=== PATIENT | female | born 1990 | race Hispanic/Latino ===

== ENCOUNTER 2018-02-12 20:59 | Inpatient (IN) | payer OTHER ==
[2018-02-12] MEDS ORDERED: Sodium Chloride 0.9% 1,000 ML IV STA (22:19)
[2018-02-12 22:57] LABS: BASO # 0.1 K/uL (0.0-0.2); BASO % 0.6 % (0.0-2.0); EOS # 0.1 K/uL (0.0-0.7); EOS % 0.6 % (0.0-4.0); HEMOGLOBIN 13.4 g/dL (12.0-16.0); LYMPH # 1.9 K/uL (1.0-4.3); LYMPH % 13.4 % (20.0-40.0); MEAN CELL VOLUME 92.2 fl (81.0-99.0); MEAN CORPUSCULAR HEMOGLOBIN 31.6 pg (27.0-31.0); MEAN CORPUSCULAR HGB CONC 34.2 g/dL (33.0-37.0); MEAN PLATELET VOLUME 10.3 fl (7.2-11.7); MONO # 0.8 K/uL (0.0-0.8); NEUT # 11.2 K/uL (1.8-7.0); NEUT % 79.4 % (50.0-75.0); RBC 4.25 Mil/uL (3.80-5.20); RED CELL DISTRIBUTION WIDTH 12.5 % (11.5-14.5); WHITE BLOOD COUNT 14.1 K/uL (4.8-10.8)
[2018-02-12 23:03] LABS: SQUAMOUS EPITHIAL 14 /hpf (0-5); URINE BACTERIA OCC (<OCC); URINE BILIRUBIN NEGATIVE (NEGATIVE); URINE BLOOD NEGATIVE (NEGATIVE); URINE CLARITY CLOUDY (Clear); URINE COLOR YELLOW (YELLOW); URINE GLUCOSE (UA) NEG (Normal); URINE LEUKOCYTE ESTERASE LARGE Leu/uL (Negative); URINE PROTEIN 30 mg/dL (NEGATIVE); URINE UROBILINOGEN 0.2-1.0 mg/dL (0.2-1.0)
[2018-02-12 23:19] LABS: ALB/GLOB RATIO 1.3 (1.0-2.1); ALT/SGPT 33 U/L (9-52); AST/SGOT 27 U/L (14-36); BLOOD UREA NITROGEN 12 mg/dl (7-17); CALCIUM 9.2 mg/dL (8.4-10.2); GFR AFRICAN-AMERICAN > 60; GFR NON-AFRICAN AMERICAN > 60
[2018-02-12 23:22] LABS: PARTIAL THROMBOPLASTIN TIME 30.7 Seconds (25.6-37.1); PROTHROMBIN TIME 10.8 Seconds (9.8-13.1)
--- NOTE | 2018-02-12 23:35 | ED PDOC ---
HPI: Abdomen Time Seen by Provider: 02/12/18 21:45 Chief Complaint (Nursing): Abdominal Pain History Per: Patient History/Exam Limitations: no limitations Onset/Duration Of Symptoms: Days Outside of [place] travel?: No Current Symptoms Are (Timing): Still Present Location Of Pain/Discomfort: RLQ Quality Of Discomfort: Unable To Describe Associated Symptoms: Nausea. denies: Fever, Chills, Vomiting, Diarrhea, Loss Of Appetite, Constipation, Urinary Symptoms Additional Complaint(s): No PMHX presenting with abdominal pain, RLQ, states it started yesterday. States she's had this pain for a month but it comes and goes. States she's been seen by both a surgeon and DIE CAST OPERATOR as an outpatient that believe her symptoms are either related to appendicitis or endometriosis. She states that the pain was severe, requiring her to come to the ER. Associated with nausea, no vomiting. No urinary symptoms, fevers, chills. Past Medical History Reviewed: Historical Data, Nursing Documentation, Vital Signs Vital Signs: Last Vital Signs Temp 98.6 F 02/12/18 21:41 Pulse 86 02/12/18 21:41 Resp 20 02/12/18 21:41 BP 135/94 H 02/12/18 21:41 Pulse Ox 98 02/12/18 23:37 - Family History Family History: States: Unknown Family Hx - Home Medications Home Medications: Ambulatory Orders Medication Instructions Recorded No Known Home Med 02/13/18 - Allergies Allergies/Adverse Reactions: Allergies Allergy/AdvReac Type Severity Reaction Status Date / Time amoxicillin Allergy Mild hives Verified 02/12/18 21:44 Review of Systems ROS Statement: Except As Marked, All Systems Reviewed And Found Negative Gastrointestinal: Positive for: Abdominal Pain Physical Exam - Reviewed Nursing Documentation Reviewed: Yes Vital Signs Reviewed: Yes - Physical Exam Appears: Positive for: Well, Non-toxic, No Acute Distress Head Exam: Positive for: ATRAUMATIC, NORMAL INSPECTION, NORMOCEPHALIC Skin: Positive for: Normal Color, Warm, DRY Eye Exam: Positive for: EOMI, Normal appearance, PERRL ENT: Positive for: Normal ENT Inspection Neck: Positive for: Normal, Painless ROM Cardiovascular/Chest: Positive for: Regular Rate, Rhythm Respiratory: Positive for: CNT, Normal Breath Sounds Gastrointestinal/Abdominal: Positive for: Normal Exam, Bowel Sounds, Soft, Tenderness (RLQ tenderness). Negative for: Organomegaly, Mass, Distended, Guarding Back: Positive for: Normal Inspection Extremity: Positive for: Normal ROM Neurologic/Psych: Positive for: Alert, Oriented - Laboratory Results Result Diagrams: 02/13/18 06:17 02/12/18 22:45 - ECG O2 Sat by Pulse Oximetry: 98 Pulse Ox Interpretation: Normal Medical Decision Making Medical Decision MakinPM A/P: Hx of abdominal pain x 1 month, now worsening -concerned for possible appendicitis v. mesenteric adenitis v. endometriosis v. colitis -will get labs, CT, give fluids, toradol -re-eval 5AM -CT shows no acute abnormality but patient in continued pain -Will admit to surgical service -Patient seen and examined by Dr. Cisneros Disposition - Clinical Impression Clinical Impression: Abdominal pain - Disposition Disposition Time: 05:00 Condition: FAIR
[2018-02-13] MEDS ORDERED: Iohexol 240 (50 ml) PO ONE (01:20)
[2018-02-13] MEDS ORDERED: Sodium Chloride 0.9% 50 ML IV ONE (02:53)
[2018-02-13] MEDS ORDERED: Iohexol 300 100 ML IJ ONE (02:53)
[2018-02-13] MEDS ORDERED: Lactated Ringer's 1,000 ML IV SCH (04:00)
--- NOTE | 2018-02-13 04:12 | CP.PCM.HP ---
History of Present Illness - History of Present Illness History of Present Illness: General surgery H & P for Dr. Guillermo Cisneros, PGY-2 Pt S & E at bedside at 0305 27F w/PMH sig for recurrent RLQ abdominal pain x 1 mo. Pt reports multiple hospital admissions with imaging performed for RLQ ab pain over last month. Pain is sharp, severe, intermittent episodes, radiates to low back. No alleviating or aggravating factors identified. Tried mini OCP without alleviation. This particular episode of RLQ ab pain started last night. No inciting, alleviating factors identified. Aggravated by movement. Admits to associated headache, abdominal bloating, nausea, discomfort with urination. Denies edward dysuria, hematuria, urinary frequency, onset with relation to specific time during menstrual period, fevers, chills, chest pain, SOB, emesis, constipation, diarrhea, or other complaints. In ED - Afebrile, leukocytosis of 14.1. CT abdomen with no evidence of an acute intra-abdominal or pelvic abnormality. No evidence of acute appendicitis. PMH: Recurrent RLQ abdominal pain, PCOS, bicuspid aortic valve PSH: denies All: Amoxicillin SH: Admits to occasional EOTH use - #2 drinks weekly, denies tobacco or illicit drug use PMD: Dr. Nataliya Beard Hand Glass Cutter: Dr. Garcia Present on Admission - Present on Admission Any Indicators Present on Admission: No History of DVT/PE: No History of Uncontrolled Diabetes: No Urinary Catheter: No Decubitus Ulcer Present: No Review of Systems - Review of Systems All systems: reviewed and no additional remarkable complaints except - Constitutional Constitutional: absent: Chills, Fever, Weakness - EENT Eyes: absent: Change in Vision Nose/Mouth/Throat: absent: Sore Throat - Cardiovascular Cardiovascular: absent: Chest Pain - Respiratory Respiratory: absent: Cough - Gastrointestinal Gastrointestinal: Abdominal Pain, Bloating, Nausea. absent: Constipation, Diarrhea, Hematemesis, Hematochezia, Vomiting - Genitourinary Genitourinary: absent: Change in Urinary Stream, Dysuria, Flank Pain, Hematuria - Reproductive: Female Reproductive:Female: absent: Amenorrhea - Musculoskeletal Musculoskeletal: Back Pain (radiates from front). absent: Numbness, Tingling - Integumentary Integumentary: absent: Rash - Neurological Neurological: absent: Dizziness - Psychiatric Psychiatric: Change in Appetite (decreased when in pain) Past Patient History - Past Social History Smoking Status: Never Smoked - PSYCHIATRIC Hx Substance Use: No - SURGICAL HISTORY Hx Surgeries: No Meds Allergies/Adverse Reactions: Allergies Allergy/AdvReac Type Severity Reaction Status Date / Time amoxicillin Allergy Mild hives Verified 02/12/18 21:44 Physical Exam - Constitutional Appears: Non-toxic, No Acute Distress - Head Exam Head Exam: ATRAUMATIC, NORMAL INSPECTION, NORMOCEPHALIC - Eye Exam Eye Exam: EOMI, Normal appearance - ENT Exam ENT Exam: Mucous Membranes Moist, Normal Exam - Neck Exam Neck exam: Positive for: Full Rom, Normal Inspection - Respiratory Exam Respiratory Exam: Clear to Auscultation Bilateral, NORMAL BREATHING PATTERN. absent: Rales, Rhonchi, Wheezes, Respiratory Distress - Cardiovascular Exam Cardiovascular Exam: REGULAR RHYTHM, +S1, +S2 - GI/Abdominal Exam GI & Abdominal Exam: Distended, Hyperactive Bowel Sounds, Soft, Tenderness (RLQ) . absent: Firm, Guarding, Rebound, Rigid - Rectal Exam Rectal Exam: Deferred - Extremities Exam Extremities exam: Positive for: normal inspection - Neurological Exam Neurological exam: Alert, CN II-XII Intact, Oriented x3 - Psychiatric Exam Psychiatric exam: Normal Affect, Normal Mood - Skin Skin Exam: Dry, Intact, Normal Color, Warm Results - Vital Signs Recent Vital Signs: Last Vital Signs Temp 98.6 F 02/12/18 21:41 Pulse 86 02/12/18 21:41 Resp 20 02/12/18 21:41 BP 135/94 H 02/12/18 21:41 Pulse Ox 98 02/12/18 23:37 - Labs Result Diagrams: 02/12/18 22:45 02/12/18 22:45 Labs: Laboratory Results - last 24 hr 02/12/18 02/12/18 02/12/18 22:45 22:45 22:45 WBC 14.1 H RBC 4.25 Hgb 13.4 Hct 39.2 MCV 92.2 MCH 31.6 H MCHC 34.2 RDW 12.5 Plt Count 251 MPV 10.3 Neut % (Auto) 79.4 H Lymph % (Auto) 13.4 L Tift % (Auto) 6.0 Eos % (Auto) 0.6 Baso % (Auto) 0.6 Neut # (Auto) 11.2 H Lymph # (Auto) 1.9 Tift # (Auto) 0.8 Eos # (Auto) 0.1 Baso # (Auto) 0.1 PT INR APTT Sodium 139 Potassium 4.1 Chloride 105 Carbon Dioxide 22 Anion Gap 16 BUN 12 Creatinine 0.6 L Est GFR ( Amer) > 60 Est GFR (Non-Af Amer) > 60 Random Glucose 87 Calcium 9.2 Total Bilirubin 0.4 AST 27 ALT 33 Alkaline Phosphatase 55 Total Protein 7.1 Albumin 4.0 Globulin 3.1 Albumin/Globulin Ratio 1.3 Urine Color Yellow Urine Clarity Cloudy Urine pH 5.0 Ur Specific [place] 1.029 Urine Protein 30 Urine Glucose (UA) Neg Urine Ketones Trace Urine Blood Negative Urine Nitrate Negative Urine Bilirubin Negative Urine Urobilinogen 0.2-1.0 Ur Leukocyte Esterase Large Urine RBC (Auto) 10 H Urine Microscopic WBC 18 H Ur Squamous Epith Cells 14 H Urine Bacteria Occ H Blood Type Antibody Screen BBK History Checked 02/12/18 02/12/18 22:55 22:55 WBC RBC Hgb Hct MCV MCH MCHC RDW Plt Count MPV Neut % (Auto) Lymph % (Auto) Tift % (Auto) Eos % (Auto) Baso % (Auto) Neut # (Auto) Lymph # (Auto) Tift # (Auto) Eos # (Auto) Baso # (Auto) PT 10.8 INR 1.0 APTT 30.7 Sodium Potassium Chloride Carbon Dioxide Anion Gap BUN Creatinine Est GFR ( Amer) Est GFR (Non-Af Amer) Random Glucose Calcium Total Bilirubin AST ALT Alkaline Phosphatase Total Protein Albumin Globulin Albumin/Globulin Ratio Urine Color Urine Clarity Urine pH Ur Specific [place] Urine Protein Urine Glucose (UA) Urine Ketones Urine Blood Urine Nitrate Urine Bilirubin Urine Urobilinogen Ur Leukocyte Esterase Urine RBC (Auto) Urine Microscopic WBC Ur Squamous Epith Cells Urine Bacteria Blood Type B POSITIVE Antibody Screen Negative BBK History Checked No verified bt Assessment & Plan - Assessment and Plan (Free Text) Assessment: 27F w/recurrent RLQ ab pain, chronic appendicitis vs. endometriosis Plan: Admit to med-surg VS Q8H NPO Pain medication Abx IVF Anti-emetic PRN Ambulates OOBTC Plan for OR later today Consent in chart FU EKG Will DW attending Amelia, PGY-2 - Date & Time Date: 02/13/18 Time: 04:11 Decision To Admit - Pt Status Changed To: Hospital Disposition Of: Observation - . Bed Request Type: Med/Surg Admitting Physician: Ricky Church
[2018-02-13 06:28] LABS: MEAN CELL VOLUME 92.7 fl (81.0-99.0); MEAN CORPUSCULAR HEMOGLOBIN 31.7 pg (27.0-31.0); MEAN CORPUSCULAR HGB CONC 34.2 g/dL (33.0-37.0); RBC 4.09 Mil/uL (3.80-5.20); RED CELL DISTRIBUTION WIDTH 12.6 % (11.5-14.5); WHITE BLOOD COUNT 11.6 K/uL (4.8-10.8)
[2018-02-13 06:54] LABS: BLOOD UREA NITROGEN 7 mg/dl (7-17); CALCIUM 8.6 mg/dL (8.4-10.2); GFR AFRICAN-AMERICAN > 60; GFR NON-AFRICAN AMERICAN > 60
[2018-02-13] MEDS ORDERED: Ciprofloxacin 400mg/200ml D5W 400 MG/200 ML BAG IVPB ONE (07:17)
--- NOTE | 2018-02-13 07:46 | CARD ---
APPROVED REPORT Date of service: 02/13/2018 <Conclusion> Normal sinus rhythm Septal infarct, age undetermined Abnormal ECG
[2018-02-13] MEDS: Ciprofloxacin 400mg/200ml D5W 400 MG/200 ML BAG IVPB SCH ×2 (07:51→22:00)
[2018-02-13] MEDS: metroNIDAZOLE 500mg/100ml NS 100 ML IVPB SCH ×2 (09:24→21:25)
--- NOTE | 2018-02-13 10:36 | CT ---
Date of service: 02/13/2018 PROCEDURE: CT Abdomen and Pelvis with contrast HISTORY: RLQ pain COMPARISON: None. TECHNIQUE: Contrast dose: 90 cc of Omnipaque 300 Radiation dose: Total exam DLP = 737 mGy-cm. This CT exam was performed using one or more of the following dose reduction techniques: Automated exposure control, adjustment of the mA and/or kV according to patient size, and/or use of iterative reconstruction technique. FINDINGS: LOWER THORAX: Unremarkable. LIVER: Unremarkable. No gross lesion or ductal dilatation. GALLBLADDER AND BILE DUCTS: Unremarkable. PANCREAS: Unremarkable. No gross lesion or ductal dilatation. SPLEEN: Unremarkable. ADRENALS: Unremarkable. No mass. KIDNEYS AND URETERS: Unremarkable. No hydronephrosis. No solid mass. VASCULATURE: Unremarkable. No aortic aneurysm. BOWEL: Unremarkable. No obstruction. No gross mural thickening. APPENDIX: Normal appendix. PERITONEUM: Unremarkable. No free fluid. No free air. LYMPH NODES: Unremarkable. No enlarged lymph nodes. BLADDER: Unremarkable. REPRODUCTIVE: There is a left ovarian cyst measuring 3.8 x 5.0 cm. BONES: No acute fracture. OTHER FINDINGS: The report concurs with the preliminary [facility] report IMPRESSION: Left ovarian cysts. No acute intra-abdominal findings
[2018-02-13] MEDS ORDERED: Propofol 10 mg/ml Inj (20 ML) ONE (13:29)
[2018-02-13] MEDS ORDERED: Succinylcholine 200 mg/10 ml Inj IV ONE (13:30)
[2018-02-13] MEDS ORDERED: ePHEDrine 50 mg/ml Inj ONE (13:30)
[2018-02-13] MEDS ORDERED: Rocuronium 10 mg/ml (5 ml) ONE (13:30)
[2018-02-13] MEDS ORDERED: Lidocaine 4% (Laryng-O-Jet) Kit MM ONE (13:30)
[2018-02-13] MEDS ORDERED: Midazolam 2 MG/2 ML VIAL ONE (13:30)
[2018-02-13] MEDS ORDERED: Lactated Ringer's 1,000 ML IV ONE ×5 (13:55→17:10)
[2018-02-13] MEDS ORDERED: Bupivacaine 0.5% 50 ML IJ ONE ×2 (14:33)
[2018-02-13] MEDS ORDERED: Neostigmine 1:1000 (1 mg/ml) Inj ONE (15:10)
[2018-02-13] MEDS ORDERED: Desflurane Inhalation Anesthetic Liq (240 ml) ONE (15:11)
--- NOTE | 2018-02-13 15:45 | PCM.SURG1 ---
Surgeon's Initial Post Op Note - Surgeon's Notes Surgeon: Dr. Church Paper Bag Machine Operator: Dr Estrada Ricketts PGY3 Type of Anesthesia: General Endo Pre-Operative Diagnosis: RLQ abd pain Operative Findings: see dictation Post-Operative Diagnosis: same Operation Performed: diagnostic laparoscopy, laparoscopic appendectomy Specimen/Specimens Removed: appendix Estimated Blood Loss: EBL {In ML}: 15 Blood Products Given: N/A Drains Used: No Drains Post-Op Condition: Good Date of Surgery/Procedure: 02/13/18 Time of Surgery/Procedure: 15:45
[2018-02-13] MEDS ORDERED: oxyCODONE 10 mg Immediate Release Tab PO PRN (15:47)
[2018-02-13] MEDS ORDERED: HYDROmorphone 1 mg/ml ISec ONE ×3 (15:51→16:41)
[2018-02-13] MEDS: HYDROmorphone 0.5 mg/0.5 ml ISec IVP PRN ×3 (15:55→16:40)
[2018-02-13] MEDS ORDERED: Bupivacaine HCl 0.25% PF (30 ml) Inj ONE (16:12)
[2018-02-13] MEDS: oxyCODONE 5 mg Immediate Release Tab PO PRN (18:01)
[2018-02-14] MEDS: Ciprofloxacin 400mg/200ml D5W 400 MG/200 ML BAG IVPB SCH ×3 (00:08→21:51)
--- NOTE | 2018-02-14 08:34 | CP.PCM.PN ---
Subjective - Date & Time of Evaluation Date of Evaluation: 02/14/18 Time of Evaluation: 07:40 - Subjective Subjective: General Surgery Dr. Bowden Pt S&E @bedside. Pt underwent diagnostic laparoscopy, laparoscopic appendectomy yesterday. Pt tolerated the procedure well w/ no complications. NAEO. pain well controlled. denies F/C, N/V. tolerated PO overnight. NPO this AM for HIDA. Objective - Vital Signs/Intake and Output Vital Signs (last 24 hours): Temp Pulse Resp BP Pulse Ox 98.3 F 86 18 99/63 L 98 02/14/18 03:56 02/14/18 03:56 02/14/18 03:56 02/14/18 03:56 02/14/18 03:56 - Medications Medications: Current Medications Acetaminophen (Tylenol 325mg Tab) 650 mg PO Q4 PRN PRN Reason: Pain, Mild (1-3) Lactated Ringer's (Lactated Ringer's) 1,000 mls @ 120 mls/hr IV .Q8H20M [facility] Last Admin: 02/13/18 06:02 Dose: 120 mls/hr Ciprofloxacin (Cipro 400mg/200ml Dsw) 400 mg in 200 mls @ 200 mls/hr IVPB Q12 DOUGLAS PRN Reason: Protocol Last Admin: 02/13/18 22:00 Dose: 200 mls/hr Metronidazole (Flagyl 500mg/100ml Ns) 100 mls @ 100 mls/hr IVPB Q12 DOUGLAS PRN Reason: Protocol Last Admin: 02/13/18 21:25 Dose: 100 mls/hr Morphine Sulfate (Morphine) 4 mg IVP Q4 PRN PRN Reason: Pain, severe (8-10) Last Admin: 02/14/18 00:57 Dose: 4 mg Ondansetron HCl (Zofran Inj) 4 mg IVP Q6 PRN PRN Reason: Nausea/Vomiting Last Admin: 02/13/18 19:57 Dose: 4 mg Oxycodone HCl (Oxycodone Immediate Release Tab) 5 mg PO Q4 PRN PRN Reason: Pain, Mild (1-3) Last Admin: 02/13/18 18:01 Dose: 5 mg Pantoprazole Sodium (Protonix Inj) 40 mg IVP DAILY [facility] Last Admin: 08/09/18 08:32 Dose: 40 mg - Labs Labs: 02/13/18 06:17 02/13/18 06:17 PT 10.8 Seconds (9.8-13.1) 02/12/18 22:55 INR 1.0 02/12/18 22:55 APTT 30.7 Seconds (25.6-37.1) 02/12/18 22:55 - Constitutional Appears: Non-toxic, No Acute Distress - Head Exam Head Exam: NORMAL INSPECTION - Eye Exam Eye Exam: Normal appearance - ENT Exam ENT Exam: Mucous Membranes Moist - Respiratory Exam Respiratory Exam: NORMAL BREATHING PATTERN. absent: Accessory Muscle Use, Respiratory Distress - Cardiovascular Exam Cardiovascular Exam: REGULAR RHYTHM. absent: Bradycardia, Tachycardia - GI/Abdominal Exam GI & Abdominal Exam: Soft. absent: Distended, Firm, Guarding, Tenderness, Rebound Additional comments: dressings c/d/i - Extremities Exam Extremities Exam: Normal Inspection - Neurological Exam Neurological Exam: Alert, Awake, Oriented x3 - Psychiatric Exam Psychiatric exam: Normal Affect, Normal Mood - Skin Skin Exam: Dry, Intact, Normal Color, Warm Assessment and Plan - Assessment and Plan (Free Text) Assessment: 27 y/o F s/p Dx lap, lap appy for RLQ abd pain. - f/u HIDA w/ CCK to r/o biliary dyskinesia as cause of abd pain - pain management - anti-emetic - ADAT after HIDA - encourage OOB to chair/Amb/IS use - possible discharge later today Pt discussed w/ Dr. Ranjit Dorado DO PGY3
[2018-02-14] MEDS ORDERED: Dextrose 50% SYRINGE Inj (50 ml) ONE (09:35)
[2018-02-14] MEDS ORDERED: Dextrose 50% SYRINGE Inj (50 ml) IVP STA ×2 (09:37→11:34)
--- NOTE | 2018-02-14 09:44 | PCM.RRT ---
UPSET WELDING MACHINE OPERATOR Nurse Assessment - Situation Location: [facility] UPSET WELDING MACHINE OPERATOR Reason for Call: Change in Mental Status - IV IV Inserted during UPSET WELDING MACHINE OPERATOR?: No I.Reason for UPSET WELDING MACHINE OPERATOR - A) Acute Change in Patient: (Select all that apply): Acute change in mental status Subjective: UPSET WELDING MACHINE OPERATOR was called for 27 y/o Female for evaluation and treatment of pre-syncopal episode and diaphoretic. Patient is s/p diagnostic laparoscopy, laparoscopic appendectomy yesterday. As per RN, patient was in bathroom and got little dizzy while peeing. Upon arrival, patient was awake, diaphoretic but verbally responsive and following commends. VS: 87/59, HR 57 with blood sugar of 27, patient was started on IVF and 50% Dextrose given. UPSET WELDING MACHINE OPERATOR was ended with repeat BP 116/73 with HR of 83,and blood sugar in 200s. Patient is alert, awake, oriented , verbally responsive. will follow up as needed. Case discussed with Dr. Voss - Constitutional Appears: No Acute Distress - Head Head Exam: NORMAL INSPECTION - Eyes Eye Exam: Normal appearance - Respiratory Exam Respiratory Exam: Clear to Ausculation Bilateral, NORMAL BREATHING PATTERN - Cardiovascular Exam Cardiovascular Exam: REGULAR RHYTHM - GI/Abdominal Exam GI & Abdominal Exam: Soft, Tenderness. absent: Organomegaly, Rebound Additional comments: S/p Surgical intervention - Neurological Exam Neurological Exam: Alert, Awake, Oriented x3 - Extremities Exam Extremities Exam: Normal Inspection
[2018-02-14] MEDS ORDERED: Lactated Ringer's 1,000 ML IV SCH (09:45)
--- NOTE | 2018-02-14 11:23 | CP.PCM.CON ---
History of Present Illness - History of Present Illness History of Present Illness: REASON FOR CONSULT: hypoglycemia, vasovagal episodes HPI: 27 year old female PMH presumed hypoglycemia "my doctor told me to carry around candy bars" and admits to several near syncopal episodes similar to that of today, admitted to [facility] for RLQ abdominal pain possibly chronic appendicitis versus endometriosis. This morning patient had an episode of hypoglycemia, BG 27 responsive to amp D50. Patient has been on LR while NPO, recommend maintenance fluids D5 1/2 NS + 20 KCl at 125 cc/hr. Vaso-vagal / near syncopal episodes likely secondary to hypoglycemic episodes. Recheck BG q4 hours while NPO. Patient BP was measured at 87 systolic during SATIN FINISHER however with appropriate sized BP cuff, at 116 systolic. Currently HD stable, no acute distress. ROS: per HPI all other systems reviewed and negative PMSH: hypoglycemia? FH: DM, hypoglycemia unknown etiology in Aunt SH: social ETOH, denies tobacco and IVDU ALLERGIES: PCN Past Patient History - Past Social History Smoking Status: Never Smoked - ENDOCRINE/METABOLIC Other/Comment: PCOS, endometriosis - MUSCULOSKELETAL/RHEUMATOLOGICAL Hx Falls: No - PSYCHIATRIC Hx Substance Use: No - SURGICAL HISTORY Hx Surgeries: No - ANESTHESIA Hx Anesthesia: Yes Hx Anesthesia Reactions: No Hx Malignant Hyperthermia: No Has any member of the family had a problem w/ anesthesia?: No Meds Allergies/Adverse Reactions: Allergies Allergy/AdvReac Type Severity Reaction Status Date / Time amoxicillin Allergy Mild hives Verified 02/12/18 21:44 - Medications Medications: Current Medications Acetaminophen (Tylenol 325mg Tab) 650 mg PO Q4 PRN PRN Reason: Pain, Mild (1-3) Lactated Ringer's (Lactated Ringer's) 1,000 mls @ 120 mls/hr IV .Q8H20M [facility] Last Admin: 02/13/18 06:02 Dose: 120 mls/hr Ciprofloxacin (Cipro 400mg/200ml Dsw) 400 mg in 200 mls @ 200 mls/hr IVPB Q12 DOUGLAS PRN Reason: Protocol Last Admin: 02/14/18 08:54 Dose: 200 mls/hr Metronidazole (Flagyl 500mg/100ml Ns) 100 mls @ 100 mls/hr IVPB Q12 DOUGLAS PRN Reason: Protocol Last Admin: 02/13/18 21:25 Dose: 100 mls/hr Lactated Ringer's (Lactated Ringer's) 1,000 mls @ 999 mls/hr IV .Q1H1M [facility] Ketorolac Tromethamine (Toradol) 30 mg IVP Q6 PRN PRN Reason: Pain, moderate (4-7) Ondansetron HCl (Zofran Inj) 4 mg IVP Q6 PRN PRN Reason: Nausea/Vomiting Last Admin: 02/13/18 19:57 Dose: 4 mg Oxycodone HCl (Oxycodone Immediate Release Tab) 5 mg PO Q4 PRN PRN Reason: Pain, Mild (1-3) Last Admin: 02/13/18 18:01 Dose: 5 mg Pantoprazole Sodium (Protonix Inj) 40 mg IVP DAILY [facility] Last Admin: 02/14/18 08:54 Dose: 40 mg Physical Exam - Constitutional Appears: Non-toxic, No Acute Distress - Head Exam Head Exam: ATRAUMATIC, NORMAL INSPECTION, NORMOCEPHALIC - Eye Exam Eye Exam: EOMI, Normal appearance, PERRL Pupil Exam: NORMAL ACCOMODATION - ENT Exam ENT Exam: Mucous Membranes Moist, Normal Oropharynx - Respiratory Exam Respiratory Exam: Clear to Auscultation Bilateral, NORMAL BREATHING PATTERN - Cardiovascular Exam Cardiovascular Exam: RRR, +S1, +S2 - GI/Abdominal Exam GI & Abdominal Exam: Normal Bowel Sounds, Soft. absent: Mass - Extremities Exam Extremities exam: Positive for: normal capillary refill, pedal pulses present - Back Exam Back exam: NORMAL INSPECTION. absent: CVA tenderness (L), CVA tenderness (R), paraspinal tenderness - Neurological Exam Neurological exam: Alert, Oriented x3, Reflexes Normal - Psychiatric Exam Psychiatric exam: Normal Affect, Normal Mood - Skin Skin Exam: Dry, Normal Color, Warm Results - Vital Signs Recent Vital Signs: Last Vital Signs Temp 97.8 F 02/14/18 08:36 Pulse 82 02/14/18 08:36 Resp 20 02/14/18 08:36 BP 107/74 02/14/18 08:36 Pulse Ox 98 02/14/18 08:36 - Labs Result Diagrams: 02/13/18 06:17 02/13/18 06:17 Labs: Laboratory Results - last 24 hr 02/13/18 02/14/18 02/14/18 03:00 09:34 09:42 POC Glucose (mg/dL) 27 L* 293 H Blood Type Confirm B POSITIVE 02/14/18 11:20 POC Glucose (mg/dL) 87 Blood Type Confirm Assessment & Plan - Assessment and Plan (Free Text) Plan: 27 year old female PMH presumed hypoglycemia "my doctor told me to carry around candy bars" and admits to several near syncopal episodes similar to that of today, admitted to [facility] for RLQ abdominal pain possibly chronic appendicitis versus endometriosis. This morning patient had an episode of hypoglycemia, BG 27 responsive to amp D50. Patient has been on LR while NPO, recommend maintenance fluids D5 1/2 NS + 20 KCl at 125 cc/hr. Vaso-vagal / near syncopal episodes likely secondary to hypoglycemic episodes. Recheck BG q4 hours while NPO. Patient BP was measured at 87 systolic during SATIN FINISHER however with appropriate sized BP cuff, at 116 systolic. Currently HD stable, no acute distress. Hypoglycemia - pt admits to a history of similar episodes in past, instructed to carry candy bars by primary physician - recommend adjusting maintenance fluids to D5 1/2 NS + 20 KCl while NPO as per guidelines - accuchecks q4 hours for 24 hours or until no longer NPO - patient may follow up with customer program manager as outpatient if further extensive workup required
[2018-02-14] MEDS: Potassium Ch 20mEq in D5-1/2NS 1,000 ML IV SCH ×2 (11:44→20:40)
[2018-02-14] MEDS ORDERED: Dextrose 50% SYRINGE Inj (50 ml) IVP PRN (12:04)
[2018-02-14] MEDS: metroNIDAZOLE 500mg/100ml NS 100 ML IVPB SCH ×2 (12:32→21:17)
[2018-02-14] MEDS ORDERED: SODIUM CHLORIDE 0.9% IVPB ONE (17:00)
[2018-02-14] MEDS ORDERED: SINCALIDE IVPB ONE (17:00)
--- NOTE | 2018-02-14 17:18 | NM ---
Date of service: 02/14/2018 PROCEDURE: Nuclear Medicine Hepatobiliary Scan HISTORY: eval biliary dyskinesia COMPARISON: February 13, 2018. CT abdomen pelvis TECHNIQUE: 5.66 mCi of technetium 99m Mebrofenin was administered intravenously. Planar images of the abdomen were obtained at 5 min intervals to 60 mins. Delayed images were also obtained. FINDINGS: LIVER: Timely and homogenous uptake. COMMON BILE DUCT: identified at 5 mins. GALLBLADDER: Not identified at 60 mins. SMALL BOWEL: Identified at 10 mins. IMPRESSION: Abnormal Hepatobiliary Scan. The cystic duct is occluded presumptive evidence for acute cholecystitis. .
[2018-02-14] MEDS ORDERED: Simethicone 80 mg Chewtab PO PRN (21:23)
[2018-02-15] MEDS: Potassium Ch 20mEq in D5-1/2NS 1,000 ML IV SCH (02:47)
--- NOTE | 2018-02-15 08:03 | CP.PCM.DIS ---
Provider - Provider Date of Admission: 02/13/18 05:33 Attending physician: Ricky Church MD Consults: Dr. Voss - medicine Time Spent in preparation of Discharge (in minutes): 30 Hospital Course - Lab Results Lab Results: Micro Results 02/12/18 22:45 Blood Blood Culture - Preliminary NO GROWTH AFTER 48 HOURS 02/13/18 00:01 Urine Urine Culture - Final No Growth (<1,000 CFU/ML) Most Recent Lab Values WBC 11.6 K/uL (4.8-10.8) H 02/13/18 06:17 RBC 4.09 Mil/uL (3.80-5.20) 02/13/18 06:17 Hgb 13.0 g/dL (12.0-16.0) 02/13/18 06:17 Hct 37.9 % (34.0-47.0) 02/13/18 06:17 MCV 92.7 fl (81.0-99.0) 02/13/18 06:17 MCH 31.7 pg (27.0-31.0) H 02/13/18 06:17 MCHC 34.2 g/dL (33.0-37.0) 02/13/18 06:17 RDW 12.6 % (11.5-14.5) 02/13/18 06:17 Plt Count 221 K/uL (130-400) 02/13/18 06:17 MPV 10.3 fl (7.2-11.7) 02/12/18 22:45 Neut % (Auto) 79.4 % (50.0-75.0) H 02/12/18 22:45 Lymph % (Auto) 13.4 % (20.0-40.0) L 02/12/18 22:45 Carson % (Auto) 6.0 % (0.0-10.0) 02/12/18 22:45 Eos % (Auto) 0.6 % (0.0-4.0) 02/12/18 22:45 Baso % (Auto) 0.6 % (0.0-2.0) 02/12/18 22:45 Neut # (Auto) 11.2 K/uL (1.8-7.0) H 02/12/18 22:45 Lymph # (Auto) 1.9 K/uL (1.0-4.3) 02/12/18 22:45 Carson # (Auto) 0.8 K/uL (0.0-0.8) 02/12/18 22:45 Eos # (Auto) 0.1 K/uL (0.0-0.7) 02/12/18 22:45 Baso # (Auto) 0.1 K/uL (0.0-0.2) 02/12/18 22:45 PT 10.8 Seconds (9.8-13.1) 02/12/18 22:55 INR 1.0 02/12/18 22:55 APTT 30.7 Seconds (25.6-37.1) 02/12/18 22:55 Sodium 139 mmol/l (132-148) 02/13/18 06:17 Potassium 3.8 MMOL/L (3.6-5.0) 02/13/18 06:17 Chloride 106 mmol/L (98-107) 02/13/18 06:17 Carbon Dioxide 22 mmol/L (22-30) 02/13/18 06:17 Anion Gap 15 (10-20) 02/13/18 06:17 BUN 7 mg/dl (7-17) 02/13/18 06:17 Creatinine 0.5 mg/dl (0.7-1.2) L 02/13/18 06:17 Est GFR ( Amer) > 60 02/13/18 06:17 Est GFR (Non-Af Amer) > 60 02/13/18 06:17 POC Glucose (mg/dL) 148 mg/dL (65-110) H 02/14/18 16:55 Random Glucose 83 mg/dL (65-105) 02/13/18 06:17 Calcium 8.6 mg/dL (8.4-10.2) 02/13/18 06:17 Total Bilirubin 0.4 mg/dl (0.2-1.3) 02/12/18 22:45 AST 27 U/L (14-36) 02/12/18 22:45 ALT 33 U/L (9-52) 02/12/18 22:45 Alkaline Phosphatase 55 U/L (38-126) 02/12/18 22:45 Total Protein 7.1 G/DL (6.3-8.2) 02/12/18 22:45 Albumin 4.0 g/dL (3.5-5.0) 02/12/18 22:45 Globulin 3.1 gm/dL (2.2-3.9) 02/12/18 22:45 Albumin/Globulin Ratio 1.3 (1.0-2.1) 02/12/18 22:45 Urine Color Yellow (YELLOW) 02/12/18 22:45 Urine Clarity Cloudy (Clear) 02/12/18 22:45 Urine pH 5.0 (5.0-8.0) 02/12/18 22:45 Ur Specific [place] 1.029 (1.003-1.030) 02/12/18 22:45 Urine Protein 30 mg/dL (NEGATIVE) 02/12/18 22:45 Urine Glucose (UA) Neg mg/dL (Normal) 02/12/18 22:45 Urine Ketones Trace mg/dL (NEGATIVE) 02/12/18 22:45 Urine Blood Negative (NEGATIVE) 02/12/18 22:45 Urine Nitrate Negative (NEGATIVE) 02/12/18 22:45 Urine Bilirubin Negative (NEGATIVE) 02/12/18 22:45 Urine Urobilinogen 0.2-1.0 mg/dL (0.2-1.0) 02/12/18 22:45 Ur Leukocyte Esterase Large Luke/uL (Negative) 02/12/18 22:45 Urine RBC (Auto) 10 /hpf (0-3) H 02/12/18 22:45 Urine Microscopic WBC 18 /hpf (0-5) H 02/12/18 22:45 Ur Squamous Epith Cells 14 /hpf (0-5) H 02/12/18 22:45 Urine Bacteria Occ (<OCC) H 02/12/18 22:45 Blood Type B POSITIVE 02/12/18 22:55 Blood Type Confirm B POSITIVE 02/13/18 03:00 Antibody Screen Negative 02/12/18 22:55 BBK History Checked No verified bt 02/12/18 22:55 - Hospital Course Hospital Course: 27 y/o F w/ PMHx significant for recurrent RLQ abd pain presented to the ED on c/o same RLQ. Pt reports multiple hospital admissions with imaging performed for RLQ ab pain over last month. Pain is sharp, severe, intermittent episodes, radiates to low back. No alleviating or aggravating factors identified. Tried mini OCP without alleviation. This particular episode of RLQ ab pain started last night. No inciting, alleviating factors identified. Aggravated by movement. Admits to associated headache, abdominal bloating, nausea, discomfort with urination. Denies edward dysuria, hematuria, urinary frequency, onset with relation to specific time during menstrual period, fevers, chills, chest pain, SOB, emesis, constipation, diarrhea, or other complaints. In ED - Afebrile, leukocytosis of 14.1. CT abdomen with no evidence of an acute intra-abdominal or pelvic abnormality. No evidence of acute appendicitis. Pt was taken to OR for diagnostic laparoscopy, laparoscopic appendectomy. Pt tolerated the procedure well w/ no complications. POD#1 [employer] called for pre- syncopal episode. Pt found to be severely hypoglycemic. Medicine consulted for hypoglycemia. HIDA performed to r/o gallbladder as source of abd pain, which was negative, w/ GB visualized @10mins. Pt was started on regular diet and kept overnight for observation and blood glucose monitoring. AM POC BG 121. Pt tolerating regular diet and pain controlled. Pt cleared for discharge to home w / instructions to f/u as outpatient. For complete hospital stay, see medical record. Discharge Exam - Head Exam Head Exam: ATRAUMATIC, NORMAL INSPECTION, NORMOCEPHALIC - Eye Exam Eye Exam: Normal appearance - ENT Exam ENT Exam: Mucous Membranes Moist - Respiratory Exam Respiratory Exam: NORMAL BREATHING PATTERN. absent: Accessory Muscle Use, Respiratory Distress - Cardiovascular Exam Cardiovascular Exam: REGULAR RHYTHM. absent: Bradycardia, Tachycardia - GI/Abdominal Exam GI & Abdominal Exam: Soft, Tenderness (appropriate TTP RLQ). absent: Distended , Guarding, Rebound, Rigid Additional comments: dressings c/d/i - Extremities Exam Extremities exam: normal inspection - Neurological Exam Neurological exam: Alert, Oriented x3 - Psychiatric Exam Psychiatric exam: Normal Affect, Normal Mood - Skin Skin Exam: Dry, Intact, Normal Color, Warm Discharge Plan - Follow Up Plan Condition: GOOD Disposition: HOME/ ROUTINE Patient education suggested?: Yes Instructions: How to Prevent Surgical Site Infections, Surgical Wound (DC), Appendectomy, Laparoscopic Surgery (DC) Additional Instructions: follow up with Dr. Church in office in 7-10days take all medication as prescribed may take Tylenol/ibuprofen PRN for pain no heavy lifting for 3weeks pt may shower but do not soak or scrub incisions no pools, tubs, baths, swimming advance diet as tolerated cover incisions as needed for comfort Call Dr. Church &/or return to the ED if fever >101, pain, redness, swelling, drainage frin incisions. Referrals: [facility] [Outside] Ricky Church MD [Medical Doctor] -
[2018-02-15 08:28] VITALS: BP 124/85; PULSE 104; RESP 18; TEMP 98.4; O2SAT 98
[2018-02-15] MEDS: metroNIDAZOLE 500mg/100ml NS 100 ML IVPB SCH (08:51)
[2018-02-15] MEDS: Ciprofloxacin 400mg/200ml D5W 400 MG/200 ML BAG IVPB SCH (10:07)
[2018-02-15] MEDS: oxyCODONE 5 mg Immediate Release Tab PO PRN (11:59)
--- NOTE | 2018-02-16 02:58 | OP ---
Copied To: Malou Dorado DO Attending MD: Ricky Church MD PROCEDURE DATE: 02/13/2018 PREOPERATIVE DIAGNOSIS: Abdominal pain. POSTOPERATIVE DIAGNOSIS: Abdominal pain. PROCEDURES: Diagnostic laparoscopy, laparoscopic appendectomy. SURGEON: Ricky Church MD ASSISTANTS: Jordon Garcia MD; and Malou Dorado DO, PGY-3. INDICATIONS: This is a 27-year-od female who has had recurrent right lower quadrant pain for the last couple of months. CAT scan performed on this admission was negative for any acute pathology. Because of the recurrent nature of this pain, the decision was made to do diagnostic laparoscopy. The patient was consented with all risks and benefits described, and the patient was taken to the operating room. DESCRIPTION OF PROCEDURE: The patient was placed on the operating table in a supine position. General anesthesia was induced. A time-out was completed verifying correct patient, procedure, site, and positioning. The patient was prepped and draped in the usual sterile fashion. A cystoscopy was then performed with IC Green injected into bilateral ureters and hsu was placed. A hysteroscopy was also performed with no acute findings on either. Attention was then turned to the abdomen. An incision was made on the natural skin line below the umbilicus. The fascia was elevated and incised, and entry into the peritoneum was confirmed visually. An 8mm trochar was then inserted under direct visualization and a towel clip was used to close the abdominal incision around the port. The abdomen was insufflated with carbon dioxide to a pressure of 12 mmHg which the patient tolerated well. The laparoscope was then inserted into the abdomen which was then inspected. No injuries noted from initial trocar placement. The pelvis was thoroughly inspected for pathology; however, there was no appreciable signs of acute inflammation or pathology. Attention was then turned to the appendix, which did appear normal. However, the decision was made to remove the appendix to rule out appendicitis as the cause for right lower quadrant pain in the future. Under direct visualization, an 8 mm port was placed suprapubically just above the pubic symphysis and a 5 mm port was placed in the left lower quadrant just lateral to the rectus muscle. Care was taken to avoid injury to the bladder or the inferior epigastric muscles. The patient was then placed in Trendelenburg and right side up. The cecum and the small bowel were swept away from the appendix which was then grasped at the distal aspect. The mesoappendix was dissected off the appendix using LigaSure. Two endo-loops were then used to tie off the appendix at the base of the appendix with a third endo-loop tied off midway around the appendix. The appendix was then cut at the base and removed from the abdomen using a 5 mm EndoCatch bag. The appendiceal stump was then checked for hemostasis. All trocars were removed under direct visualization and no bleeding was noted from any of trocars site. The laparoscope was then withdrawn and the umbilical trocar removed. The abdomen was allowed to collapse. The umbilical port site was then closed with [id number] 0-Vicryl. The skin for all 3 ports were closed with interrupted 4-0 Monocryl. Dermabond was then applied and adhesive dressing placed overtop. The patient was extubated in the operating room and taken to PACU in satisfactory condition. Malou Dorado DO Ricky Church MD [facility]
== END 2018-02-15 14:20 | disposition home or self-care (01) | DRG 883 ==
LOC: H.ER 20:59 → H.ERHOLD 02-13 05:33 → H.MEDSURG1 02-13 08:07
PROVIDERS: ADMIT Surgery; ATTEND Surgery
PROC: 0DTJ4ZZ Resection of Appendix, Percutaneous Endoscopic Approach (ICD-10-PCS; principal; 2018-02-13 15:15)
DX: K36 Other appendicitis (principal); E11.649 Type 2 diabetes mellitus with hypoglycemia without coma; E28.2 Polycystic ovarian syndrome